=== PATIENT | female | born 1950 | race Caucasian/White ===

== ENCOUNTER → 2021-04-09 | Outpatient (CLI) | payer MEDICARE, OTHER ==
[~2021-04-09] VITALS: Ht 167.6 cm; Wt 122.5 kg
[~2021-04-09] MED LIST: ASA81BEC PO; BENADRYL25 MG PO; BENAZEPRIL 10 M10 MG PO; BIOTIN10 MG PO; CRESTOR5 MG PO; FENOFIBRATE160 MG PO; HAIR SKIN NAIL1 EACH PO; LOPRESSOR50 MG PO; MAGNESIUM OXID250 MG PO; MELATONIN10 M3 PO; METHOCARBAMOL500 M2 PO; MUCINEX600 MG PO; NAPROXEN SODIU220 M2 PO; NITROSTAT0.4 M1 SUBLING; NORCO 10-325 T1 EACH PO; OLOPATADINE HC2.5 ML EA. EYE; OMEGA 3-6-9 11200 M1 PO; PRILOSEC OTC20 MG PO; VITAMIN D325 MC3 PO; XANAX1 MG PO; ZANAFLEX4 M1 PO; ZOLOFT100 MG PO
[2021-04-09 10:49] VITALS: BP 131/59
[2021-04-09 11:23] LABS: ANION GAP 6 mmol/L (7-16); BUN 24 mg/dL (7-18); CALCIUM 8.9 mg/dL (8.5-10.1); CHLORIDE 105 mmol/L (98-107); CO2 33 mmol/L (21-32); CREATININE 1.1 mg/dL (0.6-1.3); GLUCOSE 120 mg/dL (70-99); SODIUM 144 mmol/L (136-145)
[2021-04-09 11:26] LABS: APTT 26.8 Seconds (25.0-31.3); INR 1.1; PROTIME 11.2 Seconds (9.20-11.50)
[2021-04-09 11:28] LABS: ALBUMIN 3.5 g/dL (3.4-5.0); ALKALINE PHOSPHATASE 52 U/L (46-116); CHOLESTEROL 88 mg/dL (<200); HDL CHOLESTEROL 36 mg/dL (>40); HEMATOCRIT 35.5 % (37.0-47.0); HEMOGLOBIN 10.7 gm/dL (12.0-15.0); LDL CHOLESTEROL 35 mg/dL (<100); MCH 19.9 pg (26.0-34.0); MCHC 30.2 g/dL (28.0-37.0); RBC 5.38 mil/uL (4.20-5.00); RDW-CV 18.1 % (10.5-14.5); SGOT 29 U/L (15-37); SGPT 22 U/L (30-65); TC:HDL 2.4 Ratio (Not establshd); TOTAL BILIRUBIN 0.2 mg/dL (<0.1-1.0); TOTAL PROTEIN 7.5 g/dL (6.4-8.2); TRIGLYCERIDE 89 mg/dL (<150); VLDL 18 mg/dL (<40); WBC 8.6 thou/uL (4.0-11.0)
[2021-04-09 11:30] LABS: SERUM ASSESSMENT Slight Lipemia
--- NOTE | 2021-04-09 16:34 | EKG ---
[place] [address] ELECTROCARDIOGRAM REPORT Name: CHAZ MEDEL Room: [facility]#: [id number] Admission: 04/09/21 Attend Phys: Cedric Vega, Discharge: Date of : 52 Date of Service: 04/09/21 1058 Report #: [id number] THIS REPORT FOR: //name// [facility] Test Date: 2021-04-09 Test Time: 10:58:57 Pat Name: CHAZ MEDEL Department: Room: Gender: F Weatherization Specialist: : 1950 Requested By: Cedric Vega Order Number: [id number] John MD: Rambo Quiles Measurements Intervals [place] Rate: 59 P: 77 AK: 124 QRS: 76 QRSD: 103 T: 78 QT: 456 QTc: 452 Interpretive Statements Sinus rhythm Probable left atrial enlargement Anterolateral ST segment depression; ischemia must be considered No previous ECG available for comparison Electronically Signed On 04-09-2021 16:34:08 CDT by Rambo Quiles [email or web address] <ELECTRONICALLY SIGNED> By: Rambo Quiles MD, [facility] 04/09/21 1634 1058 1058 Rambo Quiles MD, [facility] /EPI
--- NOTE | 2021-04-15 15:43 | NUR ---
LHC WAS NOT DONE ON HER TODAY (04/09/21). SHE WAS RESCHEDULED FOR LHC ON 04/14/21.
== END | disposition home or self-care (01) ==
LOC: M.CL 10:26
PROVIDERS: ATTEND Internal Medicine Cardiovascular Disease
DX: I25.10 Atherosclerotic heart disease of native coronary artery without angina pectoris (principal); Z53.8 Procedure and treatment not carried out for other reasons; I10 Essential (primary) hypertension; E78.5 Hyperlipidemia, unspecified; E11.9 Type 2 diabetes mellitus without complications; J44.9 Chronic obstructive pulmonary disease, unspecified; F32.9 Major depressive disorder, single episode, unspecified; Z98.890 Other specified postprocedural states; Z79.899 Other long term (current) drug therapy

== ENCOUNTER → 2021-04-14 | Outpatient (CLI) | payer MEDICARE, OTHER ==
[~2021-04-14] VITALS: Ht 167.6 cm; Wt 122.5 kg
[2021-04-14 13:45] VITALS: BP 136/61
[2021-04-14 14:00] VITALS: BP 160/84
[2021-04-14 14:15] VITALS: BP 128/53
--- NOTE | 2021-04-24 09:16 | H ---
[place] [address] HISTORY AND PHYSICAL Name: CHAZ MEDEL Room: [facility]#: [id number] Admission: 04/14/21 Attend Phys: Cedric Vega MD Discharge: Date of : 52 Report #: [id number] THIS REPORT FOR: cc: Varghese Douglas MD, Vinod N. MD Liston, Michael J. MD [facility] ~ DOC #: [id number] cc: MD Cedric Foster MD ADMIT DATE: 04/14/2021 INDICATION: Progressive symptoms suggestive of angina. HISTORY OF PRESENT ILLNESS: The patient is a very pleasant 70-year-old white female with history of coronary artery disease with percutaneous coronary intervention in 1995. At that time, she had a stent placed to the LAD. Her right coronary artery was noted to be occluded and filled by collaterals. Cardiac risk factors include dyslipidemia, type 2 diabetes mellitus, hypertension and remote history of tobacco use. The patient has been having complaints of progressive dyspnea on exertion, even with typical light activities. It is taking a longer time for her to catch her breath. Noninvasive stress testing suggests possible ischemia in the inferior wall. The patient is being brought to the hospital for left heart catheterization, coronary angiography and possible intervention. PAST MEDICAL HISTORY: 1. Coronary artery disease with previous intervention as outlined above. 2. COPD. 3. Type 2 diabetes mellitus. 4. Hyperlipidemia. 5. Hypertension. PAST SURGICAL HISTORY: 1. Previous left breast biopsy. 2. Bilateral carpal tunnel release. 3. Bilateral cataract extraction with intraocular lens implant. 4. Tonsillectomy and adenoidectomy. FAMILY HISTORY: Noncontributory. SOCIAL HISTORY: The patient quit smoking remotely. She does not drink alcohol. ALLERGIES: ABILIFY, CLARITIN, LIPITOR, LOVASTATIN, PRAVASTATIN, [place] [address] HISTORY AND PHYSICAL Name: CHAZ MEDEL Room: [facility]#: [id number] Admission: 04/14/21 Attend Phys: Cedric Vega MD Discharge: Date of : 52 Report #: [id number] CURRENT MEDICATIONS: Alprazolam 1 mg t.i.d. p.r.n., aspirin 81 mg daily, Lotensin 10 mg daily, Tessalon Perles 100 mg 3 times daily as needed, biotin 10 mg capsule daily, vitamin D3 25 mcg daily, Benadryl 25 mg q. 6 hours p.r.n., fenofibrate 160 mg p.o. daily, [place] 10/325 one tablet q. 8 hours p.r.n., magnesium oxide 250 mg daily, melatonin 10 mg at bedtime as needed, Robaxin 500 mg q. 6 hours p.r.n. Lopressor 50 mg p.o. b.i.d., multivitamin 1 tablet daily, Naprosyn 220 mg q. 12 hours p.r.n. Nitrostat sublingual p.r.n., Patanol ophthalmic solution b.i.d., [place] 3, 6, 9 fatty acid 1 capsule daily, Prilosec 20 mg daily, rosuvastatin 5 mg daily. Zoloft 100 mg b.i.d., Zanaflex 4 mg 3 times daily as needed. REVIEW OF SYSTEMS: A 14-point reviews of systems positive for chest discomfort, dyspnea on exertion, palpitations, lower extremity swelling, joint pain, otherwise 14-point review of systems was unremarkable. PHYSICAL EXAMINATION: VITAL SIGNS: Blood pressure 148/74, pulse is 68 and regular. GENERAL: This is a pleasant lady in no distress. Mood and affect appropriate. HEENT: Extraocular muscles intact. Mucous membranes are moist. NECK: Examination of the neck shows no jugular venous distention. There are no carotid bruits. CHEST: Examination of the chest reveals slightly diminished breath sounds without wheezes or rales. HEART: Reveals a regular rhythm without gallop or murmur. ABDOMEN: Reveals a protuberant abdomen that is soft and nontender. EXTREMITIES: Show no edema. SKIN: Dry. IMPRESSION AND RECOMMENDATIONS: 1. Coronary artery disease with symptoms to suggest progressive angina. Stress testing suggested possible inferior wall ischemia. The patient is being brought into the hospital for left heart catheterization and coronary angiography. Further intervention pending those results. 2. Mixed hyperlipidemia. Continue rosuvastatin and Zetia as tolerated with goal LDL of 70 or less. 3. Hypertension. Blood pressure appears to be fairly well controlled at present. We will adjust medications as needed. 4. Type 2 diabetes mellitus per primary physician. MD LEO Acuna/[facility] [address] [place] [address] HISTORY AND PHYSICAL Name: CHAZ MEDEL Room: [facility]#: [id number] Admission: 04/14/21 Attend Phys: Cedric Vega MD Discharge: Date of : 52 Report #: [id number] <ELECTRONICALLY SIGNED> By: Cedric Vega MD, FACC 04/24/21 0916 1553 1619[facility] a[facility]zon[facility]ini Vega MD, FACC /nt
--- NOTE | 2021-04-28 12:36 | CARD ---
[address] [address] CARDIAC CATH REPORT Name: GIANFRANCOCHAZ WALLACE Audrey [id number] Admission: 04/14/21 Attend Phys: Cedric Vega MD Discharge: Date of : 52 Report #: [id number] THIS REPORT FOR: cc: Varghese Douglas MD, Vinod N. MD Blick, David R. MD [facility] ~ APPROVED REPORT Study performed: 04/14/2021 12:09:24 Patient Details Patient Status: Out-Patient Room #: The patient is a 70 year-old female Event Personnel Cedric Vega Proof Passer, Ale Workman RN Staff Electrical Engineer, Delmi Reyes RTR Monitor, Roselia Ramirez RTR Scrub, Mitchell Mancini RTR Monitor, Arthur Coronado Smash Hand Procedures Performed Left Heart Cath w/or w/o Coronaries [id number] [facility] FFR [id number] FFR Hemostasis w/ Mynx Indication Dyspnea, Positive stress test Risk Factors Hypercholesterolemia, Hypertension Admission/Lab Medications/Medications given during procedure Heparin Unfract., Oxygen Nasal cannula 2 l per min, Lidocaine Subcut 15 ml, Midazolam (Versed) IV 1 mg, Fentanyl IV 25 mcg, Heparin IV 5000 units, Nitroglycerin IC 200 mcg, Adenosine IV 26.23 mg Procedure Narrative The patient was brought electively to the Cardiac Catheterization Laboratory and was prepped and draped in a sterile manner. The right femoral was infiltrated with 2% Lidocaine subcutaneous anesthesia. A [place] 6 FR sheath was inserted into the right femoral artery. Coronary angiography was performed using coronary diagnostic catheters. The right coronary system was accessed and visualized with a Diagnostic JR4 6Fr catheter. The left coronary system was accessed and visualized with a Diagnostic JL4 6Fr catheter[place] [address] CARDIAC CATH REPORT Name: CHAZ MEDEL Room: [facility]#: [id number] Admission: 04/14/21 Attend Phys: Cedric Vega MD Discharge: Date of : 52 Report #: [id number] was accessed and visualized with a Diagnostic JR4 6Fr catheter. Left ventricular/Aortic Valve gradient assessed via catheter pullback. Closure device was deployed with a 6 Fr Mynx. The patient tolerated the procedure well and there were no complications associated with the procedure. There was no hematoma. Intraoperative Conscious Sedation Sedation start time: 1255 Case end Time: 1327 Fentanyl 25 mcg Versed 1 mg Fluoro Time: 5.3 minutes Dose: DAP 35793 cGycm2 1169.23 mGy Contrast Type and Amount: Visipaque 110 ml Diagnostic Cath Left Main The left main coronary artery is normal and bifurcates into a left anterior descending and circumflex coronary artery. LAD The left anterior descending coronary artery has a widely patent stent in its midportion. The remainder of the vessel is free of significant disease. Diagonal 1 A large first diagonal branch has 40% narrowing proximally. Diagonal 2 A large second diagonal branch is normal. Circumflex The circumflex coronary artery has a 60% narrowing proximally. The mid vessel has mild 10% narrowing. OM1 A small first obtuse marginal branch is mildly plaqued. OM2 A large branch second obtuse marginal branch has minimal 10% plaquing proximally. OM3 A moderate size third obtuse marginal branch is free of significant disease. Right Coronary The right coronary artery is totally occluded proximally. The mid vessel, posterolateral branch and PDA fills by right to left and left to left collaterals. R PDA Faintly visualized by left to right collaterals. RPLV Faintly visualized by right to right and [id number] collaterals. Left Ventriculography Left Ventriculography was not performed. IVUS Fractional Flow [place] was performed on the proximal circum[place] [address] CARDIAC CATH REPORT Name: CHAZ MEDEL Room: [facility]#: [id number] Admission: 04/14/21 Attend Phys: Cedric Vega MD Discharge: Date of : 52 Report #: [id number] Hemodynamics The aortic pressure is 156/65 mmHg with a mean of 64 mmHg. The left ventricular pressure is 175/10 mmHg with a mean of mmHg. The left ventricular end diastolic pressure is 21 mmHg. PCI Technique Lesion Anticoagulation was achieved with Heparin. Percutaneous coronary intervention was performed on the poroximal circumflex artery segment. The lesion stenosis prior to intervention was 60% with LOLA 3 flow. A 6FR XB 3.5 100CM Guide Catheter was used to engage the Left ostium. A Pressure Wire 175cm Interventional Guidewire was used to cross the lesion. Final angiography reveals 60 % stenosis with LOLA 3 flow. COMMENTS An FFR was conducted on the proximal Circumflex Artery. The baseline reading was 0.99, and the final reading after IV Adenosine was administered for 2 minutes was 0.94. Therefore, intervention was not performed. PCI Technique Lesion The lesion stenosis prior to intervention was proximal circumflex artery segment% with LOLA flow. Conclusion 1. Chronically occluded right coronary artery that fills distally by right to right and left to right collaterals. 2. Widely patent stents in the mid left anterior sending coronary artery. 3. Moderate nonocclusive 60% narrowing of the proximal circumflex. Lesion evaluated with FFR flow wire. 4. Moderately elevated left and ventricular diastolic pressure consistent with acute diastolic heart failure. Recommendations 1. Continue medical management and aggressive risk factor modification. Diagnostic Cath Approved by: Cedric Vega MD Date/Time: <ELECTRONICALLY SIGNED> By: Arthur Coronado MD, FACC 04/20/211210 10 1211Djustine Coronado MD, FACC /INF
== END | disposition home or self-care (01) ==
LOC: M.CL 10:47
PROVIDERS: ATTEND Internal Medicine Cardiovascular Disease
DX: R94.39 Abnormal result of other cardiovascular function study (principal); I25.10 Atherosclerotic heart disease of native coronary artery without angina pectoris; I25.82 Chronic total occlusion of coronary artery; R06.00 Dyspnea, unspecified; I10 Essential (primary) hypertension; E11.9 Type 2 diabetes mellitus without complications; E78.00 Pure hypercholesterolemia, unspecified; E78.5 Hyperlipidemia, unspecified; J44.9 Chronic obstructive pulmonary disease, unspecified; F32.9 Major depressive disorder, single episode, unspecified; Z98.890 Other specified postprocedural states; Z79.899 Other long term (current) drug therapy; Z98.49 Cataract extraction status, unspecified eye; Z88.8 Allergy status to other drugs, medicaments and biological substances; Z96.1 Presence of intraocular lens